=== PATIENT | female | born 1955 | race Hispanic/Latino ===

== ENCOUNTER → 2021-01-15 | Outpatient (CLI) | payer OTHER | END | disposition home or self-care (01) | LOC: OIH 13:34 | PROVIDERS: ATTEND Family Medicine | DX: M25.572 Pain in left ankle and joints of left foot (principal); M79.89 Other specified soft tissue disorders | CPT/HCPCS: 73610 ==

== ENCOUNTER → 2023-11-03 | Outpatient (CLI) | payer OTHER | END | disposition home or self-care (01) | LOC: RAH 13:19 | PROVIDERS: ATTEND Family Medicine | DX: R51.9 Headache, unspecified (principal); R55 Syncope and collapse | CPT/HCPCS: 70450 ==